=== PATIENT | female | born 1995 | race Caucasian/White ===

== ENCOUNTER 2016-11-17 08:47 | Emergency (ER) | payer MEDICAID, OTHER ==
[~2016-11-17] VITALS: Ht 165.1 cm; Wt 78.5 kg
[2016-11-17 08:50] VITALS: Ht 165.1 cm; Wt 78.5 kg
[2016-11-17] MEDS ORDERED: morphine 4 MG/ML VIAL IV STA (09:16)
[2016-11-17] MEDS ORDERED: ONDANSETRON 4 MG INJ IV STA (09:16)
[2016-11-17] MEDS ORDERED: SOD CHLORIDE 0.9% 500 ML IV STA (09:16)
--- NOTE | 2016-11-17 09:21 | ERD ---
ER Documentation Chief Complaint Date/Time DATE: 11/17/16 TIME: 09:19 Chief Complaint rlq pain since 629 today HPI Patient is a 21-year-old female who presents to the emergency department with right lower quadrant pain which started this morning at 6:30 AM. Patient states the pain woke her up. Patient states the pain is constant and does not radiate. Patient describes the pain to be sharp. Patient reports feeling nauseous however she denies any vomiting. Patient denies any fevers, chills, chest pain, shortness of breath or loss of consciousness. Patient denies any excessive vaginal bleeding. Patient denies is any dysuria, frequency, urgency. Last menstrual period was on 10/23/16. ROS All systems reviewed and are negative except as per history of present illness. Medications Home Meds Active Scripts Ibuprofen* (Motrin*) 600 Mg Tab, 600 MG PO Q6, #30 TAB Prov:MUMTAZ BATISTA PA-C 11/17/16 Ondansetron (Ondansetron Odt) 4 Mg Tab.rapdis, 4 MG PO Q6H Y for NAUSEA AND/OR VOMITING, #10 TAB Prov:MUMTAZ BATISTA PA-C 11/17/16 Allergies Allergies: Coded Allergies: No Known Allergy (Unverified , 11/17/16) FmHx Family History: No diabetes Physical Exam Vitals Vital Signs Date Time Temp Pulse Resp B/P Pulse Ox O2 Delivery O2 Flow Rate FiO2 11/17/16 08:50 98.1 94 20 121/57 99 Physical Exam GENERAL: Well-developed, well-nourished female. Appears in pain HEAD: Normocephalic, atraumatic. EYES: Pupils are equally reactive bilaterally. EOMs grossly intact. No conjunctival erythema. ENT: Moist mucous membranes. No uvula deviation. No kissing tonsils. NECK: Supple. No meningismus. Normal range of motion of the neck. LUNG: Clear to auscultation bilaterally. No rhonchi, wheezing, rales or coarse breath sounds. HEART: Regular rate and rhythm. No murmurs, rubs or gallops. ABDOMEN: No scars, ecchymosis or rashes noted. Soft, and nondistended. Tender to palpation of the right lower quadrant. Positive bowel sounds in all four quadrants. No rebound tenderness, no guarding. (-) McBurney's point tenderness. No CVA tenderness. BACK: No midline tenderness. EXTREMITIES: Equal pulses bilaterally. No peripheral clubbing, cyanosis or edema. No unilateral leg swelling. NEUROLOGIC: Alert and oriented. Moving all four extremities without any difficulty. Normal speech. Steady gait. SKIN: Normal color. Warm and dry. No rashes or lesions. Result Diagram: 11/17/16 0940 11/17/16 0940 Results 24 hrs Laboratory Tests Test 11/17/16 09:32 11/17/16 09:40 Urine Color LT. YELLOW Urine Clarity CLEAR Urine pH 6.0 Urine Specific [facility] 1.015 Urine Ketones NEGATIVE Urine Nitrite NEGATIVE Urine Bilirubin NEGATIVE Urine Urobilinogen 0.2 E.U./dL Urine Leukocyte Esterase TRACE Urine Microscopic RBC 5-10/HPF Urine Microscopic WBC 0-2/HPF Urine Squamous Epithelial Cells FEW Urine Hemoglobin 2+ Urine Glucose NEGATIVE% Urine Total Protein NEGATIVE White Blood Count 8.310^3/ul Red Blood Count 4.5710^6/ul Hemoglobin 13.6g/dl Hematocrit 41.3% Mean Corpuscular Volume 90.4fl Mean Corpuscular Hemoglobin 29.8pg Mean Corpuscular Hemoglobin Concent 32.9g/dl Red Cell Distribution Width 12.3% Platelet Count 96096^3/UL Mean Platelet Volume 11.5fl Neutrophils % 48.7% Lymphocytes % 37.4% Monocytes % 6.5% Eosinophils % 5.8% Basophils % 1.2% Nucleated Red Blood Cells % 0.0/100WBC Neutrophils # 4.010^3/ul Lymphocytes # 3.110^3/ul Monocytes # 0.510^3/ul Eosinophils # 0.510^3/ul Basophils # 0.110^3/ul Nucleated Red Blood Cells # 0.010^3/ul Sodium Level 138mmol/L Potassium Level 3.8mmol/L Chloride Level 106mmol/L Carbon Dioxide Level 23mmol/L Anion Gap 13 Blood Urea Nitrogen 8mg/dl Creatinine 0.52mg/dl Glucose Level 94mg/dl Calcium Level 8.6mg/dl Total Bilirubin 0.6mg/dl Direct Bilirubin 0.00mg/dl Indirect Bilirubin 0.6mg/dl Aspartate Amino Transf (AST/SGOT) 18IU/L Alanine Aminotransferase (ALT/SGPT) 20IU/L Alkaline Phosphatase 73IU/L Total Protein 7.7g/dl Albumin 4.3g/dl Globulin 3.40g/dl Albumin/Globulin Ratio 1.26 Lipase 53U/L Current Medications Medications (Trade) Dose Ordered Sig/Matt Route PRN Reason Start Time Stop Time Status Last Admin Dose Admin Sodium Chloride (NS) 500 ml @ 500 mls/hr Q1H STAT IV 11/17/16 09:16 11/17/16 10:15 DC 11/17/16 10:15 Morphine Sulfate (morphine) 4 mg ONCE STAT IV 11/17/16 09:16 11/17/16 09:19 DC 11/17/16 09:42 Ondansetron HCl (Zofran Inj) 4 mg ONCE STAT IV 11/17/16 09:16 11/17/16 09:19 DC 11/17/16 09:41 Procedures/MDM ED COURSE: The patient was stable throughout ED course. I kept the patient and/or family informed of laboratory and diagnostic imaging results throughout the ED course. DIAGNOSTIC IMAGING: Read by radiologist. Patient: NNEKA JOHN : 1995 Age: 21 Sex: F MR #: [id number] DOS: 11/17/16 0916 Ordering MD: MUMTAZ BATISTA PA-C Location: [facility] Room/Bed: PROCEDURE: CT abdomen and pelvis without contrast. CLINICAL INDICATION: Right lower quadrant pain TECHNIQUE: Continues 2.5 mm axial images were obtained from the domes of the diaphragms to the inferior pubic rami. No oral or intravenous contrast was administered. The calculated dose length product (DLP) = 783.48 mGy-cm. Exam CTDlvol = 12.79 mGy. One or more of the following dose reduction techniques were used: Automated exposure control, adjustment of the mA and or KV according to patient size, or use of iterative reconstruction technique. One or more of the following dose reduction techniques were used: Automated exposure control, adjustment of the mA and or KV according to patient size, or use of iterative reconstruction technique. COMPARISON: None. FINDINGS: The lung bases are clear. No pleural pericardial fluid is seen. Liver, gallbladder, pancreas, spleen, adrenals, and kidneys are within normal limits on this noncontrast study. Is no evidence of renal calculi or obstructive uropathy. Aorta is normal in caliber. No pathologically enlarged mesenteric lymph nodes are seen. The stomach and small bowel loops are within normal limits. There is no small bowel dilatation or obstruction. No free fluid, free air, abscess is now in the upper abdomen CT pelvis: Images through the pelvis demonstrate no free fluid, free air, abscess. Bladder is partially distended, but grossly unremarkable. There are no bladder calculi. Uterus is within normal limits. There are bilateral ovarian cyst measuring 2.5 on the right side and 2.2 cm on the left side. Indicated this can be better evaluated with pelvic ultrasound. Evaluation of the colon demonstrates no diverticulosis, diverticulitis or acute colitis. Normal appendix is identified. The terminal ileum is unremarkable. There are no pathologically enlarged iliac chain lymph nodes. No destructive bony lesions are seen. IMPRESSION: 1. Bilateral ovarian cysts measuring 2.5 on the right side and 2.2 cm on the left side. Consider pelvic ultrasound for further characterization. 2. Otherwise unremarkable unenhanced CT of the abdomen pelvis. 3. Normal appendix. 4. No free fluid, free air, abscess RPTAT: HH .Arnoldo Linda MD, MD Date Time Electronically viewed and signed by .Arnoldo Linda MD, MD on 11/17/2016 10:23 .W/ DIAGNOSTIC IMAGING REPORT Patient: NNEKA JOHN : 1995 Age: 21 Sex: F MR #: [id number] DOS: 11/17/16 1035 Ordering MD: MUMTAZ BATISTA PA-C Location: [facility] Room/Bed: PROCEDURE: US Pelvis. CLINICAL INDICATION: Pelvic pain. TECHNIQUE: Multiple sonographic images of the pelvis were obtained utilizing a transabdominal and endovaginal technique. The images were reviewed on a PACS workstation. COMPARISON: CT abdomen pelvis from 11/17/2016. FINDINGS: The uterus is visualized and measures 7.7 x 3.9 x 5.7 cm. The endometrial echo complex is normal and measures 2.1 mm. There is no evidence for free fluid. The right ovary has a normal echotexture and measures 4.1 x 2.2 x 2.1 cm. The left ovary has a normal echotexture and measures 2.9 x 1.7 x 2.6 cm. There is normal Doppler flow seen in both ovaries. No adnexal masses are noted. IMPRESSION: 1. Unremarkable pelvic ultrasound. RPTAT: [facility] Physician Daiana Date Time Electronically viewed and signed by Tahir Dias Physician on 11/17/2016 11: 39 JH/ CC: MUMTAZ BATISTA PA-C MEDICATIONS GIVEN: Morphine, Zofran, IV fluids Patient tolerated medication well with no adverse reactions. Patient reported improvement in pain. MEDICAL DECISION MAKING: This is a 21-year-old female who presents with right lower quadrant pain which started at 6:30 AM today. Vital signs were reviewed. Patient is afebrile. Abdominal exam revealed tenderness to palpation in the right lower quadrant. CBC showed no evidence of systemic infection or severe anemia. CMP showed no evidence of electrolyte abnormalities, severe acidosis, alkalosis, renal failure , or liver disease. Lipase showed no evidence of acute pancreatitis. UA showed no evidence of acute infection or hematuria. Low suspicion for UTI, pyelonephritis or nephrolithiasis. Urine test was negative. CT abdomen and pelvis showed Bilateral ovarian cysts measuring 2.5 on the right side and 2.2 cm on the left side. Consider pelvic ultrasound for further characterization. Otherwise unremarkable unenhanced CT of the abdomen pelvis. Normal appendix. No free fluid, free air, abscess. Pelvic ultrasound was unremarkable. At this time, patient's presentation is most consistent with bilateral ovarian cyst.. I have a much lower clinical concern for acute coronary syndrome, AAA, mesenteric ischemia, lower lobe pneumonia, DKA, bowel perforation, cholecystitis, choledocholithiasis, ascending cholangitis, hepatic abscess, pancreatitis, splenic rupture, diverticulitis, UTI, pyelonephritis, nephrolithiasis, appendicitis, constipation, , ectopic , PID, ovarian torsion or tubo-ovarian abscess. PRESCRIPTIONS: Ibuprofen, Zofran DISCHARGE: At this time, patient is stable for discharge and outpatient management. She provided with a copy of all imaging studies and blood work obtained today. I have instructed the patient to follow-up with his/her primary care physician in 1-2 days. Patient advised that she will need to follow-up with her [facility] in the next 1-2 days for further management of her symptoms. I have instructed the patient to promptly return to the ER at any time for any new or worsening symptoms including increased pain, nausea, vomiting, diarrhea, fever, weakness or LOC. The patient and/or family expressed understanding of and agreement with this plan. All questions were answered. Home care instructions were provided. Departure Diagnosis: Primary Impression: Abdominal pain Abdominal location: right lower quadrant Qualified Code: R10.31 - Right lower quadrant abdominal pain Additional Impression: Ovarian cyst Laterality: bilateral Qualified Code: N83.201 - Cysts of both ovaries Condition: Stable Patient Instructions: Abdominal Pain Referrals: [facility] YOU HAVE RECEIVED A MEDICAL SCREENING EXAM AND THE RESULTS INDICATE THAT YOU DO NOT HAVE A CONDITION THAT REQUIRES URGENT TREATMENT IN THE EMERGENCY DEPARTMENT. FURTHER EVALUATION AND TREATMENT OF YOUR CONDITION CAN WAIT UNTIL YOU ARE SEEN IN YOUR DOCTORS OFFICE WITHIN THE NEXT 1-2 DAYS. IT IS YOUR RESPONSIBILITY TO MAKE AN APPOINTMENT FOR FOLOW-UP CARE. IF YOU HAVE A PRIMARY DOCTOR --you should call your primary doctor and schedule an appointment IF YOU DO NOT HAVE A PRIMARY DOCTOR YOU CAN CALL OUR PHYSICIAN REFERRAL HOTLINE AT IF YOU CAN NOT AFFORD TO SEE A PHYSICIAN YOU CAN CHOSE FROM THE FOLLOWING [facility] [address] [facility]. [facility] [address] [facility]. [facility] [address] [facility] [facility] [address] [facility] [address] [facility]. [facility]. [address] [facility] YOU HAVE RECEIVED A MEDICAL SCREENING EXAM AND THE RESULTS INDICATE THAT YOU DO NOT HAVE A CONDITION THAT REQUIRES URGENT TREATMENT IN THE EMERGENCY DEPARTMENT. FURTHER EVALUATION AND TREATMENT OF YOUR CONDITION CAN WAIT UNTIL YOU ARE SEEN IN YOUR DOCTORS OFFICE WITHIN THE NEXT 1-2 DAYS. IT IS YOUR RESPONSIBILITY TO MAKE AN APPOINTMENT FOR FOLOW-UP CARE. IF YOU HAVE A PRIMARY DOCTOR --you should call your primary doctor and schedule and appointment IF YOU DO NOT HAVE A PRIMARY DOCTOR YOU CAN CALL OUR PHYSICIAN REFERRAL HOTLINE AT . IF YOU CAN NOT AFFORD TO SEE A PHYSICIAN YOU CAN CHOSE FROM THE FOLLOWING [facility] INSTITUTIONS: [facility] [address] [place] [address] [facility] [address] [place] [address] [facility] [address] [place] [address] Additional Instructions: Call your primary care doctor TOMORROW for an appointment during the next 1-2 days.See the doctor sooner or return here if your condition worsens before your appointment time. MUMTAZ BATISTA PA-C Nov 17, 2016 09:21
[2016-11-17 09:49] LABS: ADD SCAN DIFF NO
[2016-11-17 09:54] LABS: ADD UMIC YES; URINE BILIRUBIN (Dip) NEGATIVE (NEGATIVE); URINE BLOOD (Dip) 2+ (NEGATIVE); URINE COLOR LT. YELLOW (YELLOW); URINE GLUCOSE (Dip) NEGATIVE (NEGATIVE); URINE KETONES (Dip) NEGATIVE (NEGATIVE); URINE LEUKOCYTE ESTERASE (Dip) TRACE (NEGATIVE); URINE NITRITE (Dip) NEGATIVE (NEGATIVE); URINE TOTAL PROTEIN (Dip) NEGATIVE (NEGATIVE); URINE UROBILINOGEN (Dip) 0.2 E.U./dL (0.1-1.0)
[2016-11-17 09:56] LABS: BASOPHIL # 0.1 10^3/ul (0.0-0.1); BASOPHILS % 1.2 % (0.0-2.0); EOSINOPHILS # 0.5 10^3/ul (0.0-0.5); EOSINOPHILS % 5.8 % (0.0-7.0); HEMATOCRIT 41.3 % (37.0-47.0); HEMOGLOBIN 13.6 g/dl (12.0-16.0); LYMPHOCYTES # 3.1 10^3/ul (0.8-2.9); LYMPHOCYTES % 37.4 % (15.0-51.0); MEAN CORPUSCULAR HEMOGLOBIN 29.8 pg (29.0-33.0); MEAN CORPUSCULAR HGB CONC 32.9 g/dl (32.0-37.0); MEAN CORPUSCULAR VOLUME 90.4 fl (82.0-101.0); MEAN PLATELET VOLUME 11.5 fl (7.4-10.4); MONOCYTE # 0.5 10^3/ul (0.3-0.9); MONOCYTES % 6.5 % (0.0-11.0); NEUTROPHILS % 48.7 % (39.0-77.0); PLATELET COUNT 249 10^3/UL (140-415); RED BLOOD COUNT 4.57 10^6/ul (4.20-5.40); RED CELL DISTRIBUTION WIDTH 12.3 % (11.5-14.5); WHITE BLOOD COUNT 8.3 10^3/ul (4.8-10.8)
[2016-11-17 10:04] LABS: ALBUMIN 4.3 g/dl (3.3-4.9); POTASSIUM 3.8 mmol/L (3.5-5.1)
[2016-11-17 10:06] LABS: CREATININE 0.52 mg/dl (0.44-1.00)
[2016-11-17 10:07] LABS: ALBUMIN/GLOBULIN RATIO 1.26; BILIRUBIN,INDIRECT 0.6 mg/dl (0-1.1); BILIRUBIN,TOTAL 0.6 mg/dl (0.2-1.3); CALCIUM 8.6 mg/dl (8.4-10.2); TOTAL PROTEIN 7.7 g/dl (6.1-8.1)
[2016-11-17 10:21] LABS: SQUAMOUS EPITHELIAL CELL,UR FEW
--- NOTE | 2016-11-17 10:23 | RADRPT ---
PROCEDURE: CT abdomen and pelvis without contrast. CLINICAL INDICATION: Right lower quadrant pain TECHNIQUE: Continues 2.5 mm axial images were obtained from the domes of the diaphragms to the inf erior pubic rami. No oral or intravenous contrast was administered. The calculated dose length prod uct (DLP) = 783.48 mGy-cm. Exam CTDlvol = 12.79 mGy. One or more of the following dose reduction techniques were used: Automated exposure control, adjustment of the mA and or KV according to patien t size, or use of iterative reconstruction technique. One or more of the following dose reduction t echniques were used: Automated exposure control, adjustment of the mA and or KV according to patient size, or use of iterative reconstruction technique. COMPARISON: None. FINDINGS: The lung bases are clear. No pleural pericardial fluid is seen. Liver, gallbladder, pancreas, spleen, adrenals, and kidneys are within normal limits on this noncont rast study. Is no evidence of renal calculi or obstructive uropathy. Aorta is normal in caliber. No pathologically enlarged mesenteric lymph nodes are seen. The stomach and small bowel loops are w ithin normal limits. There is no small bowel dilatation or obstruction. No free fluid, free air, a bscess is now in the upper abdomen CT pelvis: Images through the pelvis demonstrate no free fluid, free air, abscess. Bladder is part ially distended, but grossly unremarkable. There are no bladder calculi. Uterus is within normal l imits. There are bilateral ovarian cyst measuring 2.5 on the right side and 2.2 cm on the left side . Indicated this can be better evaluated with pelvic ultrasound. Evaluation of the colon demonstra zohra no diverticulosis, diverticulitis or acute colitis. Normal appendix is identified. The termina l ileum is unremarkable. There are no pathologically enlarged iliac chain lymph nodes. No destructive bony lesions are seen. IMPRESSION: 1. Bilateral ovarian cysts measuring 2.5 on the right side and 2.2 cm on the left side. Consider p elvic ultrasound for further characterization. 2. Otherwise unremarkable unenhanced CT of the abdomen pelvis. 3. Normal appendix. 4. No free fluid, free air, abscess RPTAT: HH .Arnoldo Alexei, MD, MD Date Time Electronically viewed and signed by .Arnoldo Linda MD, MD on 11/17/2016 10:23 .W/
--- NOTE | 2016-11-17 11:39 | RADRPT ---
PROCEDURE: US Pelvis. CLINICAL INDICATION: Pelvic pain. TECHNIQUE: Multiple sonographic images of the pelvis were obtained utilizing a transabdominal and endovaginal technique. The images were reviewed on a PACS workstation. COMPARISON: CT abdomen pelvis from 11/17/2016. FINDINGS: The uterus is visualized and measures 7.7 x 3.9 x 5.7 cm. The endometrial echo complex is normal and measures 2.1 mm. There is no evidence for free fluid. The right ovary has a normal echotexture and measures 4.1 x 2.2 x 2.1 cm. The left ovary has a normal echotexture and measures 2.9 x 1.7 x 2.6 c m. There is normal Doppler flow seen in both ovaries. No adnexal masses are noted. IMPRESSION: 1. Unremarkable pelvic ultrasound. RPTAT: A[facility] Physician Daiana Date Time Electronically viewed and signed by Physician Daiana on 11/17/2016 11:39 /
[2016-11-17] MEDS ORDERED: IBUP-1542 PO (11:50)
[2016-11-17] MEDS ORDERED: ONDA4TAB14 PO (11:50)
== END 2016-11-17 12:20 | disposition home or self-care (01) ==
LOC: FTE 08:47
DX: R10.31 Right lower quadrant pain (principal); N83.201 Unspecified ovarian cyst, right side; R11.0 Nausea; R10.2 Pelvic and perineal pain
CPT/HCPCS: 36415; 74176; 76830; 76856; 80053; 81001; 81003; 83690; 85025; 96374; 96375; J2270; J2405; J7040; Z7502

== ENCOUNTER 2017-07-06 20:48 | Emergency (ER) | payer MEDICAID ==
[~2017-07-06] VITALS: Wt 81.3 kg
[~2017-07-06 20:48] MED LIST: IBUP-1542 PO; ONDA4TAB14 PO
[2017-07-07] MEDS ORDERED: IBUPROFEN 600 MG TAB PO ONE (00:30)
[2017-07-07] MEDS ORDERED: ACETAMINOPHEN 325 MG TAB PO ONE (00:30)
--- NOTE | 2017-07-07 00:33 | ERD ---
ER Documentation Chief Complaint Chief Complaint right mid back pain x2 months and headache x1 week. Took moms tramadol at h HPI 21-year-old female presents here to emergency department for multiple complaints. Patient has been having right lower back pain for the last 2 months , has been having it worse for the last few days, throbbing pain, 6/10 scale, as was upon movement. Also in the last week, patient started to have headache, cough for the last 3 days. Patient has been having dry cough, does not cough up any phlegm or blood. Patient shortness of breath or wheezing. Patient has been having runny nose nasal congestion clear nasal discharge. Patient does not have any blood in the urine. Patient does not have hematuria or dysuria. Patient started to have fever today. ROS All systems reviewed and are negative except as per history of present illness. Medications Home Meds Active Scripts Ibuprofen* (Motrin*) 600 Mg Tab, 600 MG PO Q6, #30 TAB Prov:MUMTAZ BATISTA PA-C 11/17/16 Ondansetron (Ondansetron Odt) 4 Mg Tab.rapdis, 4 MG PO Q6H Y for NAUSEA AND/OR VOMITING, #10 TAB Prov:MUMTAZ BATISTA PA-C 11/17/16 Allergies Allergies: Coded Allergies: No Known Allergy (Unverified , 11/17/16) PMhx/Soc Hx Alcohol Use: No Hx Substance Use: No Hx Tobacco Use: No Physical Exam Vitals Vital Signs Date Time Temp Pulse Resp B/P Pulse Ox O2 Delivery O2 Flow Rate FiO2 07/06/17 21:09 100.5 91 22 121/76 95 Physical Exam GENERAL: The patient is well developed and appropriate for usual state of health, in no apparent distress. CHEST: Clear to auscultation bilaterally. There are no rales, wheezes or rhonchi. HEART: Regular rate and rhythm. No murmurs, clicks, rubs or gallops. No S3 or S4. ABDOMEN: Soft, nontender and nondistended. Good bowel sounds. No rebound or guarding. No gross peritonitis. No gross organomegaly or masses. No Paige sign or McBurney point tenderness. BACK: No midline or flank tenderness. EXTREMITIES: Equal pulses bilaterally. There is no peripheral clubbing, cyanosis or edema. No focal swelling or erythema. Full range of motion. Grossly neurovascularly intact. NEURO: Alert and oriented. Cranial nerves 2-12 intact. Motor strength in all 4 extremities with 5/5 strength. Sensation grossly intact. Normal speech and gait. SKIN: There is no apparent rash or petechia. The skin is warm and dry. HEMATOLOGIC AND LYMPHATIC: There is no evidence of excessive bruising or lymphedema. No gross cervical, axillary, or inguinal lymphadenopathy. Results 24 hrs Laboratory Tests Test 07/07/17 01:00 Urine Color YELLOW Urine Clarity SLIGHTLY CLOUDY Urine pH 7.0 Urine Specific [place] 1.023 Urine Ketones NEGATIVEmg/dL Urine Nitrite NEGATIVEmg/dL Urine Bilirubin NEGATIVEmg/dL Urine Urobilinogen 1+mg/dL Urine Leukocyte Esterase TRACELeu/ul Urine Microscopic RBC 7/HPF Urine Microscopic WBC 6/HPF Urine Squamous Epithelial Cells FEW/HPF Urine Bacteria FEW/HPF Urine Mucus FEW/HPF Urine Hemoglobin 2+mg/dL Urine Glucose NEGATIVEmg/dL Urine Total Protein NEGATIVEmg/dl Current Medications Medications (Trade) Dose Ordered Sig/Matt Route PRN Reason Start Time Stop Time Status Last Admin Dose Admin Ibuprofen (Motrin) 600 mg ONCE ONCE PO 07/07/17 00:30 07/07/17 00:31 DC 07/07/17 00:49 Acetaminophen (Tylenol Tab) 650 mg ONCE ONCE PO 07/07/17 00:30 07/07/17 00:31 DC 07/07/17 00:49 Patient was given medicines for fever control here in the emergency department. After treatment, patient temperature improved and lower. Patient appears well and is hemodynamically stable. PROCEDURE: CT Brain without contrast. CLINICAL INDICATION: Headache. TECHNIQUE: A CT of the brain was performed utilizing axial imaging from the skull base through the vertex without IV contrast. Multiplanar reformatted images were made. Images were reviewed on a PACS workstation. The CTDIvol is 45.01 mGy and the DLP is 720.23 mGycm. One or more of the following dose reduction techniques were utilized: 1.) Automated exposure control 2.) Adjustment of the mA +/- kV according to patient's size 3.) Use of iterative reconstruction technique. COMPARISON: None FINDINGS: There is no intracranial hemorrhage, mass effect, or midline shift. No extra- axial fluid collection is seen. The ventricles and sulci are normal in size and configuration. The density of the brain is normal, and the casey white matter differentiation appears well-preserved. Moderate left maxillary sinusitis. Mild right maxillary sinusitis. IMPRESSION: 1. Moderate left maxillary sinusitis and mild right maxillary sinusitis. 2. Otherwise, no acute process in the head. RPTAT: [facility] Physician Jesi Date Time Electronically viewed and signed by Physician Jesi on 07/07/2017 01:39 RS/ CC: PHILIP OSUNA NP PROCEDURE: XR Chest. CLINICAL INDICATION: Cough TECHNIQUE: Single frontal view of the chest was obtained COMPARISON: None FINDINGS: The heart and mediastinum are within normal limits. There is mild increased density projected over the lower lungs bilaterally which is thought to likely be secondary to overlying breast tissue. No focal lung consolidation is seen. There is no pleural effusion or pneumothorax. IMPRESSION: No definite acute abnormality seen. RPTAT: HJES .Cholo Camara MD, Date Time Electronically viewed and signed by .Cholo Camara MD, on 07/07/2017 01:14 .S/ PROCEDURE: CT Lumbar Spine. CLINICAL INDICATION: Neck pain TECHNIQUE: The study was performed on a multidetector CT scanner. Spiral axial 1 mm images were obtained through the lumbar spine and reformatted at 2.5 mm slice thickness. Sagittal and coronal reformations were created from the raw axial data. The images were reviewed on a PACS workstation. The administered radiation dose was CTDI vol = 19.5 mGy, DLP = 646.32 mGy-cm. One or more the following dose reduction techniques were utilized: Automated exposure control, adjustment of the mA and / or kV according to patient's size, or use of iterative reconstruction technique. DICOM images are available. COMPARISON: No prior studies are available for comparison. FINDINGS: The vertebral bodies demonstrate normal height, alignment and osseous mineralization. The abdominal aorta is unremarkable. T12-L1: The disc and neuroforamina are unremarkable. L1-L2: The disc and neuroforamina are unremarkable. L2-L3: The disc and neuroforamina are unremarkable. L3-L4: The disc and neuroforamina are unremarkable. L4-L5: The disc and neuroforamina are unremarkable. L5-S1: The disc and neuroforamina are unremarkable. IMPRESSION: Normal CT scan of the lumbar spine. RPTAT: HJES .Cholo Camara MD, MD Date Time Electronically viewed and signed by .Cholo Camara MD, MD on 07/07/2017 01:37 .S/vertex Procedures/MDM Medical decision making: Patient symptoms of lower back pain, mostly being most likely is musculoskeletal pain. Patient also has an incidental finding of a urinary tract infection and will be treated. Patient also has acute sinusitis in the maxillary sinuses noted in the CT scan. Chest x-ray does not show any pneumonia. Patient's cough runny nose nasal congestion most likely is consistent with upper respiratory tract infection. No symptoms of respiratory distress. No symptoms of any neurologic emergencies at this time. No tumors noted, no mass-effect noted. CT scan of the brain does not show any neurologic emergencies. Prescription was given for Augmentin, ibuprofen, guaifenesin DM Zyrtec, Flexeril, Jack, is advised to follow-up with primary care doctor in 2- 3 days for reevaluation of symptoms. Patient is advised to return to emergency department for any worsening symptoms. Disposition: Home. Stable. Departure Diagnosis: Primary Impression: Back pain Back pain location: low back pain Chronicity: acute Back pain laterality: right Sciatica presence: without sciatica Qualified Code: M54.5 - Acute right-sided low back pain without sciatica Additional Impressions: UTI (urinary tract infection) Urinary tract infection type: acute cystitis Hematuria presence: without hematuria Qualified Code: N30.00 - Acute cystitis without hematuria Acute sinusitis Sinusitis location: maxillary Recurrence: not specified as recurrent Qualified Code: J01.00 - Acute maxillary sinusitis, recurrence not specified URI (upper respiratory infection) URI type: unspecified viral URI Qualified Code: J06.9 - Viral upper respiratory tract infection Condition: Stable Patient Instructions: Acute Sinusitis, Back Pain (Acute Or Chronic), Understanding Urinary Tract Infections (UTIs), Uri, Viral, No Abx (Adult) PHILIP OSUNA NP Jul 07, 2017 00:33
--- NOTE | 2017-07-07 01:14 | RADRPT ---
PROCEDURE: XR Chest. CLINICAL INDICATION: Cough TECHNIQUE: Single frontal view of the chest was obtained COMPARISON: None FINDINGS: The heart and mediastinum are within normal limits. There is mild increased density projected over the lower lungs bilaterally which is thought to likel y be secondary to overlying breast tissue. No focal lung consolidation is seen. There is no pleural effusion or pneumothorax. IMPRESSION: No definite acute abnormality seen. RPTAT: HJES .Cholo Camara MD, MD Date Time Electronically viewed and signed by .Cholo Camara MD, MD on 07/07/2017 01:14 .S/
--- NOTE | 2017-07-07 01:38 | RADRPT ---
AMENDMENT: 07/07/2017 1:47:29 AM Cholo Camara M.d Addendum: Clinical indication: Back pain PROCEDURE: CT Lumbar Spine. CLINICAL INDICATION: Neck pain TECHNIQUE: The study was performed on a multidetector CT scanner. Spiral axial 1 mm images were o btained through the lumbar spine and reformatted at 2.5 mm slice thickness. Sagittal and coronal ref ormations were created from the raw axial data. The images were reviewed on a PACS workstation. The administered radiation dose was CTDI vol = 19.5 mGy, DLP = 646.32 mGy-cm. One or more the following dose reduction techniques were utilized: Automated exposure control, adjus tment of the mA and / or kV according to patient's size, or use of iterative reconstruction techniqu e. DICOM images are available. COMPARISON: No prior studies are available for comparison. FINDINGS: The vertebral bodies demonstrate normal height, alignment and osseous mineralization. The abdominal aorta is unremarkable. T12-L1: The disc and neuroforamina are unremarkable. L1-L2: The disc and neuroforamina are unremarkable. L2-L3: The disc and neuroforamina are unremarkable. L3-L4: The disc and neuroforamina are unremarkable. L4-L5: The disc and neuroforamina are unremarkable. L5-S1: The disc and neuroforamina are unremarkable. IMPRESSION: Normal CT scan of the lumbar spine. RPTAT: HJES .Cholo Camara MD, MD Date Time Electronically viewed and signed by .Cholo Camara MD, MD on 07/07/2017 01:47 .S/
--- NOTE | 2017-07-07 01:39 | RADRPT ---
PROCEDURE: CT Brain without contrast. CLINICAL INDICATION: Headache. TECHNIQUE: A CT of the brain was performed utilizing axial imaging from the skull base through the vertex without IV contrast. Multiplanar reformatted images were made. Images were reviewed on a [email or web address] workstation. The CTDIvol is 45.01 mGy and the DLP is 720.23 mGycm. One or more of the following dose reduction techniques were utilized: 1.) Automated exposure control 2.) Adjustment of the mA +/- kV according to patient's size 3.) Use of iterative reconstruction technique. COMPARISON: None FINDINGS: There is no intracranial hemorrhage, mass effect, or midline shift. No extra-axial fluid collection is seen. The ventricles and sulci are normal in size and configuration. The density of the brain is normal, and the casey white matter differentiation appears well-preserved. Moderate left maxillary s inusitis. Mild right maxillary sinusitis. IMPRESSION: 1. Moderate left maxillary sinusitis and mild right maxillary sinusitis. 2. Otherwise, no acute process in the head. RPTAT: [facility] Physician Jesi Date Time Electronically viewed and signed by Physician Jesi on 07/07/2017 01:39 RS/
[2017-07-07 01:43] LABS: ADD UMIC YES; UR ASCORBIC ACID NEGATIVE (NEGATIVE); UR BACTERIA FEW /HPF (NONE SEEN); UR BILIRUBIN (Dip) NEGATIVE (NEGATIVE); UR BLOOD (Dip) 2+ mg/dL (NEGATIVE); UR CLARITY SLIGHTLY CLOUDY (CLEAR); UR COLOR YELLOW (YELLOW); UR GLUCOSE (Dip) NEGATIVE (NEGATIVE); UR KETONES (Dip) NEGATIVE (NEGATIVE); UR LEUKOCYTE ESTERASE (Dip) TRACE Leu/ul (NEGATIVE); UR MUCUS FEW /HPF (NONE SEEN); UR NITRITE (Dip) NEGATIVE (NEGATIVE); UR RBC 7 /HPF (0-5); UR SPECIFIC GRAVITY (Dip) 1.023 (1.003-1.030); UR SQUAMOUS EPITHELIAL CELL FEW /HPF (FEW); UR TOTAL PROTEIN (Dip) NEGATIVE (NEGATIVE); UR UROBILINOGEN (Dip) 1+ mg/dL (NEGATIVE)
[2017-07-07] MEDS ORDERED: AMOX1TAB10 PO (02:07)
[2017-07-07] MEDS ORDERED: HYDR-906 PO (02:07)
[2017-07-07] MEDS ORDERED: CETI10CA PO (02:07)
[2017-07-07] MEDS ORDERED: CYCL-319 PO (02:07)
[2017-07-07] MEDS ORDERED: IBUP-1542 PO (02:07)
[2017-07-07] MEDS ORDERED: GUAI120S26 PO (02:07)
[2017-07-07 02:20] VITALS: BP 111/60; PULSE 80; RESP 16; TEMP 98.5
== END 2017-07-07 02:33 | disposition home or self-care (01) ==
LOC: FTE 20:48
DX: M54.5 Low back pain (principal); N30.00 Acute cystitis without hematuria; J01.00 Acute maxillary sinusitis, unspecified; J06.9 Acute upper respiratory infection, unspecified; R93.0 Abnormal findings on diagnostic imaging of skull and head, not elsewhere classified
CPT/HCPCS: 70450; 71010; 72131; 81001; Z7502; Z7610

== ENCOUNTER 2019-01-25 22:40 | Emergency (ER) | payer SELFPAY ==
[~2019-01-25] VITALS: Ht 165.1 cm; Wt 81.8 kg
[~2019-01-25 22:40] MED LIST changes: +AMOX1TAB10 PO; +CETI10CA PO; +CYCL10TA7 PO; +GUAI120S25 PO; +HYDR-4011 PO
[2019-01-25 22:44] VITALS: BP 119/60; PULSE 83; RESP 18; Ht 165.1 cm; Wt 81.8 kg
== END 2019-01-26 00:31 | disposition left against medical advice (07) ==
LOC: FTE 22:40
DX: Z53.21 Procedure and treatment not carried out due to patient leaving prior to being seen by health care provider (principal)